=== PATIENT | male | born 1965 | race African-American/Black ===

== ENCOUNTER 2022-04-21 02:12 | Emergency (ER) | payer OTHER, SELFPAY ==
[2022-04-21 02:40] VITALS: BP 180/98; PULSE 77; RESP 18; TEMP 37.2; O2SAT 98; BMI 29.5
[2022-04-21 05:43] VITALS: BP 165/86; PULSE 78; RESP 18; O2SAT 98
[2022-04-21 11:56] LABS: CT PCR NOT DETECTED (Not Detect.); NG PCR NOT DETECTED (Not Detect.)
== END 2022-04-21 07:14 | disposition left against medical advice (07) ==
PROVIDERS: Emergency Provider Emergency Medicine
DX: Z20.2 Contact with and (suspected) exposure to infections with a predominantly sexual mode of transmission (principal); Z79.899 Other long term (current) drug therapy
CPT/HCPCS: 87491; 87591; 99283